=== PATIENT | male | born 1960 | race Hispanic/Latino ===

== ENCOUNTER 2021-01-26 10:02 | Emergency (ER) | payer OTHER ==
[~2021-01-26] VITALS: Ht 167.6 cm; Wt 87.1 kg
[2021-01-26] MEDS ORDERED: LOSARTAN POTAS100 MG PO (10:24)
[2021-01-26 13:33] VITALS: BP 155/90
== END 2021-01-26 13:35 | disposition home or self-care (01) ==
LOC: ER 10:07
DX: S39.012A Strain of muscle, fascia and tendon of lower back, initial encounter (principal); V43.52XA Car driver injured in collision with other type car in traffic accident, initial encounter; Y92.488 Other paved roadways as the place of occurrence of the external cause; I10 Essential (primary) hypertension
CPT/HCPCS: 72125; 72131; 99283

== ENCOUNTER → 2024-01-28 | Day surgery (SDC) | payer OTHER ==
[2024-01-23 08:05] LABS: BASOPHILS % 0.6 % (0.0-1.0); EOSINOPHILS # (AUTO) 0.1 (0.0-0.4); EOSINOPHILS % 2.4 % (0.0-6.0); HEMATOCRIT 43.5 % (38.2-49.6); HEMOGLOBIN 14.8 g/dL (14.0-18.0); LYMPHOCYTES # (AUTO) 1.7 (1.0-3.2); MEAN CORPUSCULAR HEMOGLOBIN 31.4 pg (28-32); MEAN CORPUSCULAR VOLUME 92.4 fL (81-99); MONOCYTES # (AUTO) 0.6 (0.2-0.8); NEUTROPHILS # (AUTO) 2.9 (2.1-6.9); NEUTROPHILS % 53.8 % (38.7-80.0); PLATELET COUNT 173 x10e3/uL (140-360); RED BLOOD COUNT 4.71 x10e6/uL (4.3-5.7); RED CELL DISTRIBUTION WIDTH 12.5 % (11.7-14.4); WHITE BLOOD COUNT 5.35 x10e3/uL (4.8-10.8)
[2024-01-23 08:24] LABS: ALBUMIN 4.2 g/dL (3.5-5.0); ALBUMIN/GLOBULIN RATIO 1.2 (0.8-2.0); BILIRUBIN,TOTAL 1.1 mg/dL (0.2-1.2); TOTAL PROTEIN 7.6 g/dL (6.5-8.1)
[2024-01-23 12:20] LABS: ANION GAP 17.5 mmol/L (8-16); POTASSIUM 4.5 mmol/L (3.5-5.1)
[2024-01-23 12:21] LABS: CALCIUM 9.1 mg/dL (8.4-10.2)
[~2024-01-28] MED LIST: ACETAMINOPHEN 1000 MG/100 ML IV ONE; DEXAMETHASONE SOD PHOS INJ 4 MG/ML SDV ONE; EPHEDRINE SULFATE INJ 50 MG/ML VIAL ONE; FENTANYL CITRATE/PF 100MCG/2 ML INJ ONE; HYDROCODONE/APAP 7.5MG-325MG 1 EA TAB ONE; KETOROLAC TROMETHAMINE 30 MG/ML VIAL ONE; LIDOCAINE HCL 2% LOCAL INJ 5 ML SDV VIAL INJ ONE; LOSARTAN POTAS100 MG PO; ONDANSETRON HCL INJ 2MG/ML 2ML 2 MG/ML VIAL ONE; PROPOFOL IV EMULSION 10 MG/ML 20 ML VIAL ONE; ROCURONIUM BROMIDE 10 MG/ML 5ML VIAL IV ONE; SEVOFLURANE INHAL SOLN 250 ML PEN BTL ONE; SUGAMMADEX SODIUM 200 MG/2 ML VIAL IV ONE; [UNRECOGNIZED DRUG - OTHER] PO
[2024-01-28] MEDS: LACTATED RINGER'S 1,000 ML ONE (06:48)
[2024-01-28 12:25] VITALS: TEMP 97.8
[2024-01-28] MEDS: HYDROCODONE/APAP 7.5MG-325MG 1 EA TAB PO ONE (12:34)
[2024-01-28 13:00] VITALS: BP 150/89; PULSE 50; RESP 14; O2SAT 97
== END | disposition home or self-care (01) ==
LOC: OR 06:16
PROVIDERS: ATTEND Surgery
DX: K42.9 Umbilical hernia without obstruction or gangrene (principal); K43.9 Ventral hernia without obstruction or gangrene; D17.1 Benign lipomatous neoplasm of skin and subcutaneous tissue of trunk; R00.1 Bradycardia, unspecified; I10 Essential (primary) hypertension; Z01.810 Encounter for preprocedural cardiovascular examination; Z01.812 Encounter for preprocedural laboratory examination; Z01.818 Encounter for other preprocedural examination; Z79.899 Other long term (current) drug therapy
CPT/HCPCS: 22903; 36415; 49594; 71046; 80053; 85025; 88304; 93005; C1781; J0131; J0690; J1100; J1885; J2001; J2405; J2704; J3010; J7121